=== PATIENT | female | born 2000 | race Caucasian/White ===

== ENCOUNTER 2024-08-30 20:18 | Emergency (ER) | payer OTHER ==
[2024-08-30] MEDS ORDERED: NA CHLORIDE 0.9% 1,000 ML ONE (21:02)
[2024-08-30] MEDS ORDERED: ONDANSETRON 4 MG/2 ML VIAL ONE (21:02)
[2024-08-30 21:06] LABS: Specific Gravity < 1.005 (1.005-1.030); Sqamous Epithelial <5 /HPF (None Seen); Urine Bacteria None Seen /HPF (<20); Urine Bilirubin NEGATIVE (Negative); Urine Blood Negative (Negative); Urine Clarity Turbid (Clear); Urine Color Colorless (Yellow); Urine Crystals Unidentified Few /HPF (None Seen); Urine Culture Reflex Order NOT NEEDED; Urine Glucose NEGATIVE (Negative); Urine Ketones NEGATIVE (Negative); Urine Microscopic Reflex YN ORDER UMIC; Urine Nitrite NEGATIVE (Negative); Urine Protein NEGATIVE (Negative); Urine RBC <5 /HPF (None Seen); Urine Urobilinogen Normal (Normal); Urine WBC <5 /HPF (<5); Urine Yeast (Budding) Trace /HPF (None Seen)
[2024-08-30 21:20] LABS: Absolute Basophils 0.1 K/uL (0-0.5); Absolute Lymphocytes (CBC) 2.2 K/uL (0.7-4.9); Absolute Monocytes 0.7 K/uL (0.1-1.3); Absolute Neutrophil 4.9 K/uL (1.8-8.0); Basophils % 0.8 % (0-1.3); Eosinophils % 0.4 % (0-4.4); Hematocrit 36.8 % (36.0-45.0); Hemoglobin 12.4 g/dL (12.0-15.0); Lymphocytes % 27.8 % (15.3-44.8); MCH 31.1 pg (27.0-35.0); MCHC 33.8 g/dL (32.0-36.0); MPV 8.2 fL (7.6-11.3); Monocytes % 8.7 % (3.3-12.3); Neutrophils % 62.3 % (41.7-73.7); Platelets 248 thou/uL (152-406); Red Cell Distribution Width 12.8 % (12.1-15.2)
[2024-08-30 21:25] LABS: Albumin 3.8 g/dL (3.4-5.0); Albumin/Globulin Ratio 1.1 (1.1-1.8); Anion Gap 8.2 mEq/L (5.0-15.0); Bilirubin Total 0.5 mg/dL (0.2-1.0); Globulin 3.5 g/dL (2.3-3.5); Potassium 3.2 mEq/L (3.5-5.1); Protein, Total 7.3 g/dL (6.4-8.2)
--- NOTE | 2024-08-30 22:03 | RAD REPORT ---
EXAMINATION: US Transvaginal OB COMPARISON: None. HISTORY: [facility] MAIN VAG bleed Bed: TECHNIQUE: Real-time ultrasound was performed through the pelvis. A transvaginal scan was performed t o better visualize the intrauterine contents and adnexa. FINDINGS: There is a single gestational sac along the endometrium, with no pole or cardiac pulsations obs erved. Both ovaries are visualized and demonstrate bilateral large cysts/follicles, measuring up to 4.5 cm o n the right and 3.7 cm in the left. Small heterogeneous collection to the left of the gestational sac, measuring 9 x 8 x 7 mm, could repr esent a small subchorionic hemorrhage. Measurements and Calculations: Gestational sac mean diameter: 1.09 cm, consistent with a sonographic age of 5 weeks, 6 days. The pat ient's LMP dates are 07/24/2024. Yolk sac seen, measuring 1.3 mm. IMPRESSION: Single living intrauterine , with a composite sonographic age of 5 weeks, 6 days based on me an sac diameter. Short-term sonographic follow-up and stranding of serum beta-hCG levels is recommended to ensure viability. Suspected small subchorionic hemorrhage measuring 9 mm, for which close clinical follow-up is recomme nded..
--- NOTE | 2024-08-30 22:23 | EDPHYS ---
Physician Documentation [facility] Name: Johana Gaona Age: 23 yrs Sex: Female : 2000 Arrival Date: 08/30/2024 Time: 20:18 Bed 14 Private MD: ED Physician Jason Kilgore HPI: 08/30 20:26 This 23 yrs old Female presents to ER via Unassigned with complaints of sp4 Vaginal Bleeding, PT IS 6 WEEKS PREG. 22:18 Patient presents with acute vaginal spotting. Patient is at estimated 5 weeks sp4 2 days EGA by LMP. Last menstrual period 07/24/2024. Presents with acute vaginal spotting feeling lightheaded and nauseated. . 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 - Infectious Disease History:: Denies. - Social history:: Smoking status: Patient denies any tobacco usage or history of. - Family history:: not pertinent. ROS: 22:18 Constitutional: Negative for fever, chills, and weight loss, positive for vaginal sp4 spotting, positive general for a lightheaded feeling and nausea 22:18 All other systems are negative, Exam: 22:18 Constitutional: This is a well developed, well nourished patient who is awake, alert, sp4 and in no acute distress. Head/Face: Normocephalic, atraumatic. Eyes: Pupils equal round and reactive to light, extra-ocular motions intact. Lids and lashes normal. Conjunctiva and sclera are not injected. Cornea within normal limits. Periorbital areas with no swelling, redness, or edema. ENT: Nares patent. No nasal discharge, no septal abnormalities noted. Tympanic membranes are normal and external auditory canals are clear. Oropharynx with no redness, swelling, or masses, exudates, or evidence of obstruction, uvula midline. Mucous membranes moist. Neck: Trachea midline, no thyromegaly or masses palpated, and no cervical lymphadenopathy. Supple, full range of motion without nuchal rigidity, or vertebral point tenderness. Chest/axilla: Normal chest wall appearance and motion. Nontender with no deformity. No lesions are appreciated. Cardiovascular: Regular rate and rhythm with a normal S1 and S2. No gallops, murmurs, or rubs. Normal PMI, no JVD. No pulse deficits. Respiratory: Lungs have equal breath sounds bilaterally, clear to auscultation and percussion. No rales, rhonchi or wheezes noted. No increased work of breathing, no retractions or nasal flaring. Abdomen/GI: Soft, with normal bowel sounds. No distension or tympany. No guarding or rebound. No evidence of tenderness throughout. Back: No spinal tenderness. No costovertebral tenderness. Skin: Warm, dry with normal turgor. Normal color with no rashes, no lesions, and no evidence of cellulitis. MS/ Extremity: Pulses equal, no cyanosis. Neurovascular intact. Full, normal range of motion. Neuro: Awake and alert, GCS 15, oriented to person, place, time, and situation. Cranial nerves II-XII grossly intact. Motor strength 5/5 in all extremities. Sensory grossly intact. Psych: Awake, alert, with orientation to person, place and time. Behavior, mood, and affect are within normal limits Vital Signs: 20:31 BP 107 / 76; Pulse 85; Resp 16; Temp 97.4; Pulse Ox 97% on R/A; Weight 63.5 kg; Height cm10 5 ft. 3 in. ; Pain 5/10; 20:31 Body Mass Index 24.80 (63.50 kg, 160.02 cm) cm10 20:31 Pain Scale: Adult cm10 Jake Coma Score: 22:18 Eye Response: spontaneous(4). Motor Response: obeys commands(6). Verbal Response: sp4 oriented(5). Total: 15. MDM: 20:28 Medical Screening Exam initiated sp4 22:08 ED course: [place] [id number] sp4 RADIOLOGYSERVICES REPORT Name: JOHANA GAONA Acct Number: [id number] :2000 Age:23 Sex:F Ord Phys: Jason Kilgore MD Unit Number: [id number] [facility] Dr: NAKUL Status: REG ER Exam Date: 08/30/24 EXAMINATION: US Transvaginal OB COMPARISON: None. HISTORY: [facility] MAIN VAG bleed Bed: TECHNIQUE: Real-time ultrasound was performed through the pelvis. A transvaginal scan was performed to better visualize the intrauterine contents and adnexa. FINDINGS: There is a single gestational sac along the endometrium, with no pole or cardiac pulsations observed. Both ovaries are visualized and demonstrate bilateral large cysts/follicles, measuring up to 4.5 cm on the right and 3.7 cm in the left. Small heterogeneous collection to the left of the gestational sac, measuring 9 x 8 x 7 mm, could represent a small subchorionic hemorrhage. Measurements and Calculations: Gestational sac mean diameter: 1.09 cm, consistent with a sonographic age of 5 weeks, 6 days. The patient's LMP dates are 07/24/2024. Yolk sac seen, measuring 1.3 mm. IMPRESSION: Single living intrauterine , with a composite sonographic age of 5 weeks, 6 days based on mean sac diameter. Short-term sonographic follow-up and stranding of serum beta-hCG levels is recommended to ensure viability. Suspected small subchorionic hemorrhage measuring 9 mm, for which close clinical follow-up is recommended.. Reported By: Moshe Mao. 08/31 04:14 Differential diagnosis: harleen infection, cervicitis, dysfunctional uterine bleeding, sp4 endometriosis, Data reviewed: vital signs, nurses notes, lab test result(s), radiologic studies, ultrasound. Consideration of Admission/Observation Escalation of care including admission/observation considered. ED course: . 08/30 20:26 Order name: CBC with Diff; Complete Time: 22:08 sp4 08/30 20:26 Order name: CMP; Complete Time: 22:08 sp4 08/30 20:26 Order name: Urinalysis w/ reflexes; Complete Time: 22:08 sp4 08/30 20:26 Order name: Abo/rh Typing; Complete Time: 22:08 sp4 08/30 20:28 Order name: HCG-Quantitative; Complete Time: 22:08 sp4 08/30 20:34 Order name: Transvaginal OB; Complete Time: 22:08 EDMS 08/30 20:26 Order name: IV Saline Lock; Complete Time: 20:59 sp4 08/30 20:26 Order name: Labs collected and sent; Complete Time: 20:59 sp4 Administered Medications: 08/30 21:13 Drug: NS 0.9% IV 1000 ml IV at 1 bolus Per protocol; to be given as a bolus over 60 jb4 minutes Route: IV; Rate: 1 bolus; Site: right antecubital; 23:15 Follow up: Response: No adverse reaction; IV Status: Completed infusion; IV Intake: jb4 1000ml 21:14 Drug: Ondansetron IVP 8 mg IVP once; over 2 minutes Route: IVP; Site: right antecubital;jb4 21:45 Follow up: Response: No adverse reaction; Marked relief of symptoms; Nausea is decreasedjb4 Disposition: 08/31 04:14 Chart complete. sp4 Disposition Summary: 08/30/24 22:22 Discharge Ordered Problem: new sp4 Symptoms: have improved sp4 Condition: Stable sp4 Diagnosis - Threatened sp4 - at 5 weeks EGA sp4 - Vaginal bleeding in sp4 Followup: sp4 - With: Private Physician - When: 1 - 2 days - Reason: Recheck today's complaints Discharge Instructions: - Discharge Summary Sheet sp4 - Threatened Miscarriage sp4 Forms: - Work release form sp4 - Patient Portal Instructions sp4 Signatures: Dispatcher [employer] Stephon Wallace RN RN jb4 Jason Kilgore MD MD sp4 Krupa Elizondo RN RN cm10 Corrections: (The following items were deleted from the chart) 08/30 20:27 20:27 CBC+H.LAB.BRZ ordered. EDMS EDMS 20:27 20:27 COMPREHENSIVE METABOLIC PANEL+C.LAB.BRZ ordered. EDMS EDMS 20:27 20:27 Urinalysis+U.LAB.BRZ ordered. EDMS EDMS 20:34 20:28 OB Complete+US.RAD.BRZ ordered. EDMS EDMS
--- NOTE | 2024-08-30 22:23 | ER ---
Nurse's Notes [facility] Name: Lynsey Corley Age: 23 yrs Sex: Female : 2000 Arrival Date: 08/30/2024 Time: 20:18 Bed 14 Private MD: Diagnosis: Threatened ; at 5 weeks EGA ;Vaginal bleeding in Presentation: 08/30 20:31 Chief complaint: Patient states: APPROXIMATELY 6 WEEKS AND STARTED HAVING cm10 BRIGHT RED SPOTTING AND RIGHT SIDED CRAMPING 1HR CONTACT FINGER ASSEMBLER. LMP: 07/24/24 A1. Coronavirus screen: Client denies travel out of the [place] in the last 14 days. Ebola Screen: Patient denies travel to an Ebola-affected area in the 21 days before illness onset. No symptoms or risks identified at this time. Initial Sepsis Screen: Does the patient meet any 2 criteria? No. Patient's initial sepsis screen is negative. Does the patient have a suspected source of infection? No. Patient's initial sepsis screen is negative. Risk Assessment: Do you want to hurt yourself or someone else? Patient reports no desire to harm self or others. Onset of symptoms was August 30, 2024. 20:31 Method Of Arrival: Ambulatory cm10 20:31 Acuity: DAVID 3 cm10 Triage Assessment: 20:33 General: Appears in no apparent distress. uncomfortable, Behavior is calm, cooperative. cm10 Pain: Complains of pain in right lower quadrant Pain does not radiate. Pain currently is 5 out of 10 on a pain scale. Quality of pain is described as crampy, Pain began 1 hour ago. Neuro: No deficits noted. Level of Consciousness is awake, alert, obeys commands, Oriented to person, place, time, situation, Appropriate for age. Respiratory: No deficits noted. Airway is patent Respiratory effort is even, unlabored, Respiratory pattern is regular, symmetrical. : Reports vaginal bleeding that is bright red, spotty, since 1HR CONTACT FINGER ASSEMBLER. 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 - Infectious Disease History:: Denies. - Social history:: Smoking status: Patient denies any tobacco usage or history of. - Family history:: not pertinent. Screenin:19 [facility] ED Fall Risk Assessment (Adult) History of falling in the last 3 months, jb4 including since admission No falls in past 3 months (0 pts) Confusion or Disorientation No (0 pts) Intoxicated or Sedated No (0 pts) Impaired Gait No (0 pts) Mobility Assist Device Used No (0 pt) Altered Elimination No (0 pt) Score/Fall Risk Level 0 - 2 = Low Risk Oriented to surroundings, Maintained a safe environment. Abuse screen: Denies threats or abuse. Nutritional screening: No deficits noted. Tuberculosis screening: No symptoms or risk factors identified. Assessment: 21:20 Reassessment: Patient appears in no apparent distress at this time. Patient and/or jb4 family updated on plan of care and expected duration. Pain level reassessed. Patient is alert, oriented x 3, equal unlabored respirations, skin warm/dry/pink. 22:56 Reassessment: Patient appears in no apparent distress at this time. Patient and/or jb4 family updated on plan of care and expected duration. Pain level reassessed. Patient is alert, oriented x 3, equal unlabored respirations, skin warm/dry/pink. d/c pending completion of IV fluids. Patient states feeling better. Vital Signs: 20:31 BP 107 / 76; Pulse 85; Resp 16; Temp 97.4; Pulse Ox 97% on R/A; Weight 63.5 kg; Height cm10 5 ft. 3 in. ; Pain 5/10; 20:31 Body Mass Index 24.80 (63.50 kg, 160.02 cm) cm10 20:31 Pain Scale: Adult cm10 [place] Coma Score: 22:18 Eye Response: spontaneous(4). Motor Response: obeys commands(6). Verbal Response: sp4 oriented(5). Total: 15. ED Course: 20:22 Patient arrived in ED. gm2 20:26 Jason Kilgore MD is Attending Physician. sp4 20:32 Triage completed. cm10 20:32 Arm band placed on right wrist. Patient placed in an exam room, on a stretcher. cm10 20:55 Inserted saline lock: 20 gauge in right antecubital area, using aseptic technique. jb4 Blood collected. 20:59 Stephon Abbasi, RN is Primary Nurse. jb4 20:59 Abo/rh Typing Sent. jb4 20:59 HCG-Quantitative Sent. jb4 20:59 CBC with Diff Sent. jb4 20:59 CMP Sent. jb4 20:59 Urinalysis w/ reflexes Sent. jb4 21:28 Transvaginal OB In Process Unspecified. EDMS 23:20 No provider procedures requiring assistance completed. IV discontinued, intact, jb4 bleeding controlled, No redness/swelling at site. Pressure dressing applied. Administered Medications: 21:13 Drug: NS 0.9% IV 1000 ml IV at 1 bolus Per protocol; to be given as a bolus over 60 jb4 minutes Route: IV; Rate: 1 bolus; Site: right antecubital; 23:15 Follow up: Response: No adverse reaction; IV Status: Completed infusion; IV Intake: jb4 1000ml 21:14 Drug: Ondansetron IVP 8 mg IVP once; over 2 minutes Route: IVP; Site: right antecubital;jb4 21:45 Follow up: Response: No adverse reaction; Marked relief of symptoms; Nausea is decreasedjb4 Intake: 23:15 IV: 1000ml; Total: 1000ml. jb4 Outcome: 22:22 Discharge ordered by . sp4 23:20 Discharged to home ambulatory, jb4 23:20 Condition: stable 23:20 Discharge instructions given to patient, Instructed on discharge instructions, follow up and referral plans. Demonstrated understanding of instructions, follow-up care, 23:20 Patient left the ED. jb4 Signatures: Dispatcher [employer] EDMS Stephon Abbasi, RN RN jb4 Jason Kilgore MD MD sp4 Krupa Elizondo RN RN cm10 Caterina Pérez 2
[2024-08-31 07:19] VITALS: BP 107/76; TEMP 97.4; O2SAT 97
== END 2024-08-30 23:20 | disposition home or self-care (01) ==
LOC: ER 20:18
DX: O20.0 Threatened abortion (principal); Z3A.01 Less than 8 weeks gestation of pregnancy
CPT/HCPCS: 96361; 85025; 81001; 36415; 86900; 86901; 84702; 80053; 76817; 96374; 99284; J2405; J7030

== ENCOUNTER 2024-09-05 15:26 | Emergency (ER) | payer OTHER ==
[2024-09-05] MEDS ORDERED: D5 0.9 NS 1,000 ML IV ONE (17:24)
[2024-09-05] MEDS ORDERED: PROMETHAZINE INJ 25 MG/ML AMP ONE ×2 (17:24→20:25)
[2024-09-05 17:54] LABS: Specific Gravity 1.017 (1.005-1.030); Urine Bacteria None Seen /HPF (<20); Urine Bilirubin NEGATIVE (Negative); Urine Blood Negative (Negative); Urine Clarity Turbid (Clear); Urine Color Light-Yellow (Yellow); Urine Culture Reflex Order NOT NEEDED; Urine Glucose NEGATIVE (Negative); Urine Ketones NEGATIVE (Negative); Urine Microscopic Reflex YN ORDER UMIC; Urine Mucus Slight /HPF (None Seen); Urine Nitrite NEGATIVE (Negative); Urine Protein NEGATIVE (Negative); Urine RBC <5 /HPF (None Seen); Urine Urobilinogen Normal (Normal); Urine WBC <5 /HPF (<5); Urine WBC Clump Rare /HPF (None Seen)
[2024-09-05 17:57] LABS: Absolute Basophils 0.1 K/uL (0-0.5); Absolute Lymphocytes (CBC) 2.1 K/uL (0.7-4.9); Absolute Monocytes 0.9 K/uL (0.1-1.3); Absolute Neutrophil 6.9 K/uL (1.8-8.0); Eosinophils % 0.3 % (0-4.4); Hematocrit 38.1 % (36.0-45.0); Hemoglobin 12.8 g/dL (12.0-15.0); Lymphocytes % 21.3 % (15.3-44.8); MCHC 33.6 g/dL (32.0-36.0); MCV 92.3 fL (80-100); MPV 8.2 fL (7.6-11.3); Monocytes % 8.5 % (3.3-12.3); Neutrophils % 68.9 % (41.7-73.7); Nucleated Red Blood Cells % 0.1 % (0-0); Platelets 282 thou/uL (152-406); RBC Red Blood Cell Count 4.13 M/uL (3.86-4.86); Red Cell Distribution Width 13.3 % (12.1-15.2)
[2024-09-05 18:04] LABS: Anion Gap 7.4 mEq/L (5.0-15.0); Potassium 3.4 mEq/L (3.5-5.1)
--- NOTE | 2024-09-05 18:25 | EDPHYS ---
Physician Documentation [facility] Name: Lynsey Corley Age: 23 yrs Sex: Female : 2000 Arrival Date: 09/05/2024 Time: 15:26 Bed 13 Private MD: ED Physician Reed Reinoso HPI: 09/05 16:33 This 23 yrs old Female presents to ER via Ambulatory with complaints of Vomiting - 6wks ms3 preg. 16:33 23 yo female who is currently six weeks into her presents to the Emergency ms3 Department with persistent vomiting since approximately 10 a.m., unable to tolerate po. The patient's last menstrual period was around July 24. This is her second , with a previous miscarriage in 2020. She reports a mild cramping pain on the right side, rated at 4 to 5 out of 10 in severity, and also mentions lower back pain. There is a history of morning sickness during this , which typically subsides by 11 a.m. The patient had an ultrasound last due to bleeding, and it was noted that she was further along than previously thought. The patients OB is Dr. Cotter, located in [place].. 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 - Infectious Disease History:: Denies. - Social history:: Smoking status: Reported history of juuling and/or vaping. ROS: 16:33 Constitutional: Negative for fever, and chills. Cardiovascular: Negative for chest ms3 pain, and palpitations. Respiratory: Negative for shortness of breath, cough, wheezing, and pleuritic chest pain, 16:33 MS/Extremity: Negative for injury and deformity, Skin: Negative for injury, rash, and discoloration, 16:33 Abdomen/GI: Positive for abdominal pain, nausea and vomiting, Exam: 16:33 Constitutional: This is a well developed, well nourished patient who is awake, alert, ms3 and in no acute distress. Chest/axilla: Normal chest wall appearance and motion. Nontender with no deformity. Cardiovascular: Regular rate and rhythm with a normal S1 and S2. No gallops, murmurs, or rubs. Normal PMI, no JVD. No pulse deficits. Respiratory: Lungs have equal breath sounds bilaterally, clear to auscultation and percussion. No rales, rhonchi or wheezes noted. No increased work of breathing, no retractions or nasal flaring. Abdomen/GI: Soft, non-tender, with normal bowel sounds. No distension or tympany. No guarding or rebound. No evidence of tenderness throughout. Skin: Warm, dry with normal turgor. Normal color with no rashes, no lesions, and no evidence of cellulitis. MS/ Extremity: Pulses equal, no cyanosis. Neurovascular intact. Full, normal range of motion. Vital Signs: 15:32 BP 114 / 70; Pulse 91; Resp 18; Temp 97.8; Pulse Ox 100% ; Weight 64.86 kg; Height 5 ap3 ft. 3 in. ; 17:51 BP 118 / 78; Pulse 89; Resp 18; Pulse Ox 100% on R/A; ph 19:14 BP 116 / 78; Pulse 84; Resp 18; Temp 97.9; Pulse Ox 99% on R/A; ph 20:33 BP 118 / 76; Pulse 80; Resp 20; Temp 98.2; Pulse Ox 100% on R/A; kj2 21:00 BP 121 / 78; Pulse 82; Resp 18; Pulse Ox 100% on R/A; kj2 15:32 Body Mass Index 25.33 (64.86 kg, 160.02 cm) ap3 MDM: 15:48 Medical Screening Exam initiated ms3 16:35 Differential diagnosis: Hyperemesis gravidum vs UTI vs Electrolyte abnormality. ms3 17:23 Transition of care: After a detail discussion of the patient's case, care is ms3 transferred to Adriano Pang NP. 18:23 Data reviewed: vital signs, lab test result(s). pm1 18:23 Counseling: I had a detailed discussion with the patient and/or guardian regarding the pm1 historical points, exam findings, and any diagnostic results supporting the discharge/admit diagnosis, lab results, the need for outpatient follow up, to return to the emergency department if symptoms worsen or persist or if there are any questions or concerns that arise at home. 20:19 ED course: the patient reports she vomited the Phenergan pill. Will give her Phenergan pm1 IM. 09/05 15:43 Order name: CBC with Diff; Complete Time: 18:11 ms3 09/05 15:43 Order name: BMP; Complete Time: 18:11 ms3 09/05 15:43 Order name: Urinalysis w/ reflexes; Complete Time: 17:55 ms3 Administered Medications: 17:52 Drug: D5-NS IV 1000 ml IV at bolus bolus Route: IV; Rate: bolus; Site: left antecubital;ph 19:13 Follow up: Response: No adverse reaction; IV Status: Completed infusion; IV Intake: ph 1000ml 17:52 Drug: Promethazine IM 25 mg IM once Route: IM; Site: right deltoid; ph 18:35 Follow up: Response: No adverse reaction ph 19:13 Drug: Promethazine PO 25 mg PO once Route: PO; ph 19:13 Follow up: Response: No adverse reaction ph 19:13 Drug: Potassium Chloride PO 20 mEq PO once Route: PO; ph 19:13 Follow up: Response: No adverse reaction ph 20:33 Drug: Promethazine IM 25 mg IM once Route: IM; Site: left vastus lateralis; kj2 Disposition Summary: 09/05/24 18:24 Discharge Ordered Notes: Location: Home pm1 Problem: new pm1 Symptoms: have improved pm1 Condition: Stable pm1 Diagnosis - Vomiting of , unspecified pm1 Followup: pm1 - With: Emergency Department - When: As needed - Reason: Worsening of condition Followup: pm1 - With: Private Physician - When: 2 - 3 days - Reason: Recheck today's complaints, Continuance of care, Re-evaluation by your physician Discharge Instructions: - Discharge Summary Sheet pm1 - Hyperemesis Gravidarum pm1 - Morning Sickness pm1 Forms: - Medication Reconciliation Form pm1 - Antibiotic Education pm1 - Prescription Opioid Use pm1 - Patient Portal Instructions pm1 - Leadership Thank You Letter pm1 Prescriptions: - promethazine 25 mg Rectal suppository - insert 1 suppository RECTAL route every 6 hours As needed as needed for nausea pm1 and vomiting; 10 suppository; Refills: 0, Product Selection Permitted - promethazine 25 mg Oral Tablet - take 1 tablet ORAL route every 6 hours As needed; 20 tablet; Refills: 0, pm1 Product Selection Permitted Addendum: 09/07/2024 21:33 I was immediately available on-site in the Emergency Department for consultation in the m s3 care of the patient. Signatures: Dispatcher [employer] EDMaria Del Carmen Germain, RN RN ph Adriano Pang, MALE INFERTILITY SPECIALIST MALE INFERTILITY SPECIALIST pm1 Ami Archer RN RN ap3 Reed Reinoso DO DO ms3 Kristy Xiao RN RN kj2
--- NOTE | 2024-09-05 18:25 | ER ---
Nurse's Notes [facility] Name: Lynsey Corley Age: 23 yrs Sex: Female : 2000 Arrival Date: 09/05/2024 Time: 15:26 Bed 13 Private MD: Diagnosis: Vomiting of , unspecified Presentation: 09/05 15:32 Chief complaint: Patient states: she has been having nausea and vomiting since approx ap3 0300 this morning. patient reports she is unable to tolerate foods or fluids. patient also reports she is 6 weeks and having cramping. Coronavirus screen: At this time, the client does not indicate any symptoms associated with coronavirus-19. Ebola Screen: No symptoms or risks identified at this time. Initial Sepsis Screen: Does the patient meet any 2 criteria? No. Patient's initial sepsis screen is negative. Does the patient have a suspected source of infection? No. Patient's initial sepsis screen is negative. Risk Assessment: Do you want to hurt yourself or someone else? Patient reports no desire to harm self or others. Onset of symptoms was September 05, 2024 at 03:00. 15:32 Method Of Arrival: Ambulatory ap3 15:32 Acuity: DAVID 3 ap3 Triage Assessment: 15:34 General: Appears in no apparent distress. Behavior is calm, cooperative, appropriate ap3 for age, Reports fatigue for. Pain: Complains of pain in suprapubic area. Neuro: Level of Consciousness is awake, alert, obeys commands, Oriented to person, place, time, situation, Appropriate for age. Cardiovascular: Patient's skin is warm and dry. Respiratory: Airway is patent Respiratory effort is even, unlabored, Respiratory pattern is regular, symmetrical. GI: Reports lower abdominal pain, cramping, nausea, tolerance of fluids, tolerance of food, vomiting. 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 - Infectious Disease History:: Denies. - Social history:: Smoking status: Reported history of juuling and/or vaping. Screenin:34 [facility] ED Fall Risk Assessment (Adult) History of falling in the last 3 months, ap3 including since admission No falls in past 3 months (0 pts) Confusion or Disorientation No (0 pts) Intoxicated or Sedated No (0 pts) Impaired Gait No (0 pts) Mobility Assist Device Used No (0 pt) Altered Elimination No (0 pt) Score/Fall Risk Level 0 - 2 = Low Risk Oriented to surroundings, Maintained a safe environment, Educated pt \T\ family on fall prevention, incl call for assistance when getting out of bed, Assessed \T\ reinforced patient's understanding of fall precautions, Hourly rounding (assess needs \T\ fall precautionary measures) done, Used ambulatory aids as needed (educated on \T\ assisted with), Used gait belt as appropriate. Abuse screen: Denies threats or abuse. Nutritional screening: No deficits noted. Tuberculosis screening: No symptoms or risk factors identified. Assessment: 17:49 General: Appears in no apparent distress. comfortable, well groomed, Behavior is calm, ph cooperative, appropriate for age. Pain: Complains of pain in suprapubic area. Neuro: Level of Consciousness is awake, alert, obeys commands, Oriented to person, place, time, situation. Cardiovascular: Capillary refill < 3 seconds in bilateral fingers Patient's skin is warm and dry. Respiratory: Airway is patent Respiratory effort is even, unlabored. GI: Reports nausea, vomiting. : Reports cramping, Denies vaginal bleeding. Derm: Skin is pink, warm \T\ dry. 19:13 Reassessment: Patient appears in no apparent distress at this time. Patient and/or ph family updated on plan of care and expected duration. Pain level reassessed. Patient is alert, oriented x 3, equal unlabored respirations, skin warm/dry/pink. Pt states that she vomited while in restroom, requesting to complete IV fluids, given PO phenergan. 20:10 Reassessment: patient vomited x1, vomited the last oral promethazine. kj2 20:34 Reassessment: discharge on hold,patient monitored for response to medicine. kj2 21:00 Reassessment: Patient appears in no apparent distress at this time. Patient and/or kj2 family updated on plan of care and expected duration. Pain level reassessed. Patient is alert, oriented x 3, equal unlabored respirations, skin warm/dry/pink. Vital Signs: 15:32 BP 114 / 70; Pulse 91; Resp 18; Temp 97.8; Pulse Ox 100% ; Weight 64.86 kg; Height 5 ap3 ft. 3 in. ; 17:51 BP 118 / 78; Pulse 89; Resp 18; Pulse Ox 100% on R/A; ph 19:14 BP 116 / 78; Pulse 84; Resp 18; Temp 97.9; Pulse Ox 99% on R/A; ph 20:33 BP 118 / 76; Pulse 80; Resp 20; Temp 98.2; Pulse Ox 100% on R/A; kj2 21:00 BP 121 / 78; Pulse 82; Resp 18; Pulse Ox 100% on R/A; kj2 15:32 Body Mass Index 25.33 (64.86 kg, 160.02 cm) ap3 ED Course: 15:29 Patient arrived in ED. ra3 15:29 Reed Reinoso DO is Attending Physician. ms3 15:33 Triage completed. ap3 15:35 Arm band placed on right wrist. ap3 17:13 Patient placed in an exam room, on a stretcher. ll1 17:17 Maria Del Carmen Guerin, RN is Primary Nurse. ph 17:23 Adriano Pang NP is PHCP. ms3 17:49 Initial lab(s) drawn, by oh, sent to lab. Urine collected: clean catch specimen, negrita ph colored. Inserted saline lock: 20 gauge in left antecubital area, using aseptic technique. Blood collected. Flushed with 10 mL NS. 17:51 Patient has correct armband on for positive identification. Bed in low position. Call ph light in reach. Side rails up X 1. Pulse ox on. NIBP on. Door closed. Noise minimized. Warm blanket given. Pillow given. 17:52 Urinalysis w/ reflexes Sent. ph 17:52 BMP Sent. ph 17:52 CBC with Diff Sent. ph 19:15 No provider procedures requiring assistance completed. ph 20:34 IV discontinued, intact, bleeding controlled, No redness/swelling at site. Pressure kj2 dressing applied. Administered Medications: 17:52 Drug: D5-NS IV 1000 ml IV at bolus bolus Route: IV; Rate: bolus; Site: left antecubital;ph 19:13 Follow up: Response: No adverse reaction; IV Status: Completed infusion; IV Intake: ph 1000ml 17:52 Drug: Promethazine IM 25 mg IM once Route: IM; Site: right deltoid; ph 18:35 Follow up: Response: No adverse reaction ph 19:13 Drug: Promethazine PO 25 mg PO once Route: PO; ph 19:13 Follow up: Response: No adverse reaction ph 19:13 Drug: Potassium Chloride PO 20 mEq PO once Route: PO; ph 19:13 Follow up: Response: No adverse reaction ph 20:33 Drug: Promethazine IM 25 mg IM once Route: IM; Site: left vastus lateralis; kj2 Medication: 17:49 VIS not applicable for this client. ph Intake: 19:13 IV: 1000ml; Total: 1000ml. ph Outcome: 18:24 Discharge ordered by pm1 21:14 Patient left the ED. kj2 Signatures: Maria Del Carmen Guerin, RN RN ph Adriano Pang NP BULB PACKER pm1 Ami Archer RN RN ap3 Laina López RN RN ll1 Reed Reinoso DO DO ms3 Marilyn Matias ra3 Kristy Xiao RN RN kj2
[2024-09-05] MEDS ORDERED: POTASSIUM CL SA 10 MEQ TAB PO ONE (18:57)
[2024-09-05] MEDS ORDERED: PROMETHAZINE 25 MG TABLET ONE (18:57)
[2024-09-05 21:30] VITALS: TEMP 98.2; O2SAT 100
[2024-09-05 21:31] VITALS: BP 121/78
== END 2024-09-05 21:14 | disposition home or self-care (01) ==
LOC: ER 15:26
DX: O21.9 Vomiting of pregnancy, unspecified (principal); Z3A.01 Less than 8 weeks gestation of pregnancy
CPT/HCPCS: 85025; 81001; 80048; 36415; 96360; 96372; 99284; J2550 ×2; Q0169; J7042

== ENCOUNTER 2024-10-14 08:54 | Emergency (ER) | payer OTHER ==
[2024-10-14] MEDS ORDERED: METOCLOPRAMIDE 10 MG/2mL INJ ONE (09:36)
[2024-10-14] MEDS ORDERED: NA CHLORIDE 0.9% 1,000 ML ONE (09:36)
[2024-10-14 09:48] LABS: Absolute Lymphocytes (CBC) 1.3 K/uL (0.7-4.9); Absolute Monocytes 0.5 K/uL (0.1-1.3); Absolute Neutrophil 5.2 K/uL (1.8-8.0); Basophils % 0.7 % (0-1.3); Eosinophils % 0.4 % (0-4.4); Hematocrit 32.9 % (36.0-45.0); Hemoglobin 11.4 g/dL (12.0-15.0); Lymphocytes % 18.1 % (15.3-44.8); MCH 31.4 pg (27.0-35.0); MCHC 34.7 g/dL (32.0-36.0); MCV 90.5 fL (80-100); MPV 7.8 fL (7.6-11.3); Neutrophils % 73.8 % (41.7-73.7); Nucleated Red Blood Cells % 0.1 % (0-0); Platelets 261 thou/uL (152-406); RBC Red Blood Cell Count 3.64 M/uL (3.86-4.86); Red Cell Distribution Width 12.9 % (12.1-15.2)
[2024-10-14 09:57] LABS: Specific Gravity 1.019 (1.005-1.030); Urine Bacteria None Seen /HPF (<20); Urine Bilirubin NEGATIVE (Negative); Urine Blood Negative (Negative); Urine Clarity Turbid (Clear); Urine Color Light-Yellow (Yellow); Urine Culture Reflex Order NOT NEEDED; Urine Glucose NEGATIVE (Negative); Urine Ketones 1+ (Negative); Urine Microscopic Reflex YN ORDER UMIC; Urine Mucus Slight /HPF (None Seen); Urine Nitrite NEGATIVE (Negative); Urine Protein NEGATIVE (Negative); Urine RBC <5 /HPF (None Seen); Urine Urobilinogen Normal (Normal); Urine WBC <5 /HPF (<5); Urine pH 6.5 (5.0-7.0)
[2024-10-14 10:13] LABS: ALT/SGPT < 14 U/L (13-56); AST/SGOT < 10 U/L (15-37); Albumin 3.3 g/dL (3.4-5.0); Alkaline Phosphatase 33 U/L (45-117); Anion Gap 8.6 mEq/L (5.0-15.0); BUN Blood Urea Nitrogen 5 mg/dL (7-18); Bicarbonate 24 mEq/L (21-32); Bilirubin Total 0.5 mg/dL (0.2-1.0); Globulin 3.3 g/dL (2.3-3.5); Glomerular Filtration Rate 128 ml/min (=/>90); Glucose Level 85 mg/dL (74-106); Potassium 3.6 mEq/L (3.5-5.1); Protein, Total 6.6 g/dL (6.4-8.2); Sodium Level 136 mEq/L (136-145)
[2024-10-14 10:25] LABS: HCG, Quantitative 90268 mIU/mL (1-3)
[2024-10-14] MEDS ORDERED: ACETAMINOPHEN 500 MG TAB ONE (10:33)
--- NOTE | 2024-10-14 10:50 | EDPHYS ---
Physician Documentation [facility] Name: Lynsey Corley Age: 24 yrs Sex: Female : 2000 Arrival Date: 10/14/2024 Time: 08:54 Bed 6 Private MD: ED Physician Owen Ag HPI: 10/14 09:22 This 24 yrs old Female presents to ER via Ambulatory with complaints of 11wks dr5 preg:Migraine. 09:22 Onset: The symptoms/episode began/occurred acutely. Patient is a 24-year-old female dr5 with no past medical history coming in with nausea, vomiting that started at 3:00 this morning with associated headache. Patient denies abdominal pain, fever, diarrhea, chest pain, or shortness of breath. Reports she has not tried any medications due to her not being able to keep food or fluids down.. 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 - Infectious Disease History:: Denies. - Social history:: Smoking status: Patient/guardian denies using tobacco. ROS: 09:22 Constitutional: as per hpi dr5 Exam: 09:22 Constitutional: This is a well developed, well nourished patient who is awake, alert, dr5 and in no acute distress. Head/Face: Normocephalic, atraumatic. Eyes: Pupils equal round and reactive to light, extra-ocular motions intact. Lids and lashes normal. Conjunctiva and sclera are non-icteric and not injected. Cornea within normal limits. Periorbital areas with no swelling, redness, or edema. ENT: Nares patent. No nasal discharge, no septal abnormalities noted. Tympanic membranes are normal and external auditory canals are clear. Oropharynx with no redness, swelling, or masses, exudates, or evidence of obstruction, uvula midline. Mucous membranes moist. Chest/axilla: Normal chest wall appearance and motion. Nontender with no deformity. No lesions are appreciated. Cardiovascular: Regular rate and rhythm with a normal S1 and S2. Normal PMI, no JVD. No pulse deficits. Respiratory: Lungs have equal breath sounds bilaterally, clear to auscultation. No rales, rhonchi or wheezes noted. No increased work of breathing, no retractions or nasal flaring. Back: No spinal tenderness. No costovertebral tenderness. Full range of motion. Skin: Warm, dry with normal turgor. Normal color with no rashes, no lesions, and no evidence of cellulitis. MS/ Extremity: Pulses equal, no cyanosis. Neurovascular intact. Full, normal range of motion. Neuro: Awake and alert, GCS 15, oriented to person, place, time, and situation. Cranial nerves II-XII grossly intact. Motor strength 5/5 in all extremities. Sensory grossly intact. Cerebellar exam normal. Normal gait. Vital Signs: 09:16 BP 112 / 70; Pulse 84; Resp 17; Temp 98(TE); Pulse Ox 100% ; Weight 66.68 kg; Height 5 ap3 ft. 3 in. ; Pain 9/10; 09:47 BP 98 / 69; Pulse 70; Resp 18; Pulse Ox 100% on R/A; Pain 9/10; ld1 09:16 Body Mass Index 26.04 (66.68 kg, 160.02 cm) ap3 09:16 Pain Scale: Adult ap3 09:47 Pain Scale: Adult ld1 MDM: 08:59 Medical Screening Exam initiated dr5 09:14 ED course: UpToDate Recommendation: Aspirin is not recommended for the treatment of dr5 migraine headaches during .. 11:59 Differential diagnosis: viral Infection, bacterial infection, Headache. Data reviewed: dr5 vital signs, nurses notes, lab test result(s), CBC, electrolytes, HCG. I considered the following discharge prescriptions or medication management in the emergency department Medications were administered in the Emergency Department. See MAR. Care significantly affected by the following Social Determinants of Health: Poor access to healthcare and/or lack of insurance, Poor access to transportation, Problems related to employment. Counseling: I had a detailed discussion with the patient and/or guardian regarding the historical points, exam findings, and any diagnostic results supporting the discharge/admit diagnosis, the presence of at least one elevated blood pressure reading (>120/80) during this emergency department visit, lab results, radiology results, the need for outpatient follow up, for definitive care, a family practitioner, an OB/Gyne specialist, to return to the emergency department if symptoms worsen or persist or if there are any questions or concerns that arise at home. Medication response: Reglan, NS, Tylenol. Response to treatment: the patient's symptoms have resolved after treatment. ED course: Patient is feeling much better after medication and fluids. Will give patient Diclegis to take as needed. Warning symptoms. Recommended patient find an OB for further care. Explained importance of taking multivitamin with folic acid and patient reports she is currently taking that. All questions answered. Patient reports she is feeling much better and will follow-up with OB.. 10/14 09:22 Order name: CBC with Diff; Complete Time: 09:[address] [facility] 10/14 09:22 Order name: CMP; Complete Time: 10:[address] [facility] 10/14 09:22 Order name: Urinalysis w/ reflexes; Complete Time: 09:[address] [facility] 10/14 09:22 Order name: HCG-Quantitative; Complete Time: 10:28 dr5 Administered Medications: 09:44 Drug: NS 0.9% IV 1000 ml IV at 1000 ml once; to be given as a bolus over 60 minutes ld1 Route: IV; Rate: 1000 ml; Site: right antecubital; 09:44 Drug: metoCLOPramide IVP 5 mg IVP once; over 1 to 2 minutes Route: IVP; Site: right ld1 antecubital; 10:39 Drug: Acetaminophen PO 1000 mg PO once Route: PO; ap3 Disposition Summary: 10/14/24 10:49 Discharge Ordered Notes: Location: Home dr5 Condition: Stable dr5 Diagnosis - Headache dr5 Followup: dr5 - With: Emergency Department - When: As needed - Reason: Worsening of condition Followup: dr5 - With: Private Physician - When: 1 - 2 days - Reason: Recheck today's complaints, Continuance of care, Re-evaluation by your physician Discharge Instructions: - Discharge Summary Sheet dr5 - Migraine Headache dr5 - First Trimester of , [id number]-[id number] dr5 Forms: - Medication Reconciliation Form dr5 - Patient Portal Instructions dr5 - Leadership Thank You Letter dr5 Prescriptions: - Diclegis 10-10 mg Oral tablet, delayed release (enteric coated) - take 1 tablet ORAL route daily for 30 days; 30 tablet; Refills: 0, Product dr5 Selection Permitted Addendum: 10/17/2024 07:32 Co-signature as Attending Physician, Owen Ag MD I agree with the assessment and c bourgeois plan of care. Signatures: Dispatcher [employer] Owen Tobin MD MD cha Prokisch, Amanda RN RN ap3 Stephanie Reinoso RN RN ld1 Dave Reinoso, DIRECTOR OF PLANT OPERATIONS-C DIRECTOR OF PLANT OPERATIONS-Cdr5
--- NOTE | 2024-10-14 10:50 | ER ---
Nurse's Notes [facility] Name: Lynsey Corley Age: 24 yrs Sex: Female : 2000 Arrival Date: 10/14/2024 Time: 08:54 Bed 6 Private MD: Diagnosis: Headache Presentation: 10/14 09:16 Chief complaint: Patient states: she started having a migraine yesterday at approx ap3 1500, and has been having nausea and vomiting. patient reports a history of migraines. Coronavirus screen: At this time, the client does not indicate any symptoms associated with coronavirus-19. Ebola Screen: No symptoms or risks identified at this time. Initial Sepsis Screen: Does the patient meet any 2 criteria? No. Patient's initial sepsis screen is negative. Does the patient have a suspected source of infection? No. Patient's initial sepsis screen is negative. Risk Assessment: Do you want to hurt yourself or someone else? Patient reports no desire to harm self or others. Onset of symptoms was October 13, 2023. 09:16 Method Of Arrival: Ambulatory ap3 09:16 Acuity: DAVID 3 ap3 Triage Assessment: 09:19 General: Appears uncomfortable, Behavior is calm, cooperative, appropriate for age. ap3 Pain: Complains of pain in head Pain currently is 9 out of 10 on a pain scale. Neuro: Level of Consciousness is awake, alert, obeys commands, Oriented to person, place, time, situation, Gait is steady, Speech is normal. Neuro: Reports headache. Cardiovascular: Patient's skin is warm and dry. Respiratory: Airway is patent Respiratory effort is even, unlabored, Respiratory pattern is regular, symmetrical. GI: Reports nausea, vomiting. 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 - Infectious Disease History:: Denies. - Social history:: Smoking status: Patient/guardian denies using tobacco. Screenin:21 [facility] ED Fall Risk Assessment (Adult) History of falling in the last 3 months, ap3 including since admission No falls in past 3 months (0 pts) Confusion or Disorientation No (0 pts) Intoxicated or Sedated No (0 pts) Impaired Gait No (0 pts) Mobility Assist Device Used No (0 pt) Altered Elimination No (0 pt) Score/Fall Risk Level 0 - 2 = Low Risk Oriented to surroundings, Maintained a safe environment, Educated pt \T\ family on fall prevention, incl call for assistance when getting out of bed, Assessed \T\ reinforced patient's understanding of fall precautions, Hourly rounding (assess needs \T\ fall precautionary measures) done, Used ambulatory aids as needed (educated on \T\ assisted with), Used gait belt as appropriate. Abuse screen: Denies threats or abuse. Nutritional screening: No deficits noted. Tuberculosis screening: No symptoms or risk factors identified. Assessment: 09:47 General: Appears in no apparent distress. comfortable, Behavior is calm, cooperative, ld1 appropriate for age. Pain: Complains of pain in face Pain does not radiate. Pain currently is 8 out of 10 on a pain scale. Quality of pain is described as throbbing, Pain began suddenly, Is continuous. Neuro: Level of Consciousness is awake, alert, obeys commands, Oriented to person, place, time, situation, Appropriate for age. Cardiovascular: Capillary refill < 3 seconds Patient's skin is warm and dry. Respiratory: Airway is patent Respiratory effort is even, unlabored. GI: Abdomen is flat, non-distended. : No signs and/or symptoms were reported regarding the genitourinary system. EENT: No signs and/or symptoms were reported regarding the EENT system. Derm: No signs and/or symptoms reported regarding the dermatologic system. Musculoskeletal: No signs and/or symptoms reported regarding the musculoskeletal system. Vital Signs: 09:16 BP 112 / 70; Pulse 84; Resp 17; Temp 98(TE); Pulse Ox 100% ; Weight 66.68 kg; Height 5 ap3 ft. 3 in. ; Pain 9/10; 09:47 BP 98 / 69; Pulse 70; Resp 18; Pulse Ox 100% on R/A; Pain 9/10; ld1 09:16 Body Mass Index 26.04 (66.68 kg, 160.02 cm) ap3 09:16 Pain Scale: Adult ap3 09:47 Pain Scale: Adult ld1 ED Course: 08:57 Patient arrived in ED. ra3 08:58 Dave Reinoso FNP-C [facility] 08:58 Owen Ag MD is Attending Physician. dr5 09:18 Triage completed. ap3 09:31 Stephanie Reinoso, RN is Primary Nurse. ld1 09:45 Urinalysis w/ reflexes Sent. ld1 09:45 HCG-Quantitative Sent. ld1 09:45 CMP Sent. ld1 09:45 CBC with Diff Sent. ld1 09:45 Inserted saline lock: 20 gauge in right antecubital area, using aseptic technique. ld1 Blood collected. Flushed with 10 mL NS. 09:47 No provider procedures requiring assistance completed. ld1 09:47 Patient has correct armband on for positive identification. Placed in gown. Bed in low ld1 position. Call light in reach. Side rails up X2. potline monitor on. Pulse ox on. NIBP on. Door closed. Noise minimized. Warm blanket given. 11:17 IV discontinued, intact, bleeding controlled, No redness/swelling at site. Pressure ap3 dressing applied. 11:17 Arm band placed on. ap3 11:17 Provided Education on: discharge instructions . ap3 Administered Medications: 09:44 Drug: NS 0.9% IV 1000 ml IV at 1000 ml once; to be given as a bolus over 60 minutes ld1 Route: IV; Rate: 1000 ml; Site: right antecubital; 09:44 Drug: metoCLOPramide IVP 5 mg IVP once; over 1 to 2 minutes Route: IVP; Site: right ld1 antecubital; 10:39 Drug: Acetaminophen PO 1000 mg PO once Route: PO; ap3 Medication: 09:47 VIS not applicable for this client. ld1 Outcome: 10:49 Discharge ordered by . dr5 11:17 Discharged to home ambulatory, ap3 11:17 Condition: good 11:17 Discharge instructions given to patient, Instructed on discharge instructions, follow up and referral plans. medication usage, Demonstrated understanding of instructions, follow-up care, medications, Prescriptions given X 1, 11:20 Patient left the ED. ap3 Signatures: Ami Archer RN RN ap3 Stephanie Reinoso RN RN ld1 Marilyn Matias ra3 Arleth, Dave, UNEMPLOYMENT INSPECTOR-C UNEMPLOYMENT INSPECTOR-Cdr5
[2024-10-14 11:45] VITALS: TEMP 98; O2SAT 100
[2024-10-14 11:46] VITALS: BP 98/69
== END 2024-10-14 11:20 | disposition home or self-care (01) ==
LOC: ER 08:54
DX: O26.891 Other specified pregnancy related conditions, first trimester (principal); R51.9 Headache, unspecified; Z3A.11 11 weeks gestation of pregnancy
CPT/HCPCS: 85025; 81001; 36415; 84702; 80053; 96374; 99285; J2765; J7030